=== PATIENT | male | born 1995 | race Two or more races ===

== ENCOUNTER 2017-07-05 23:58 | Emergency (ER) | payer OTHER ==
[~2017-07-05] VITALS: Ht 180.3 cm; Wt 65.8 kg
[2017-07-06] MEDS ORDERED: DUI500 PO (02:29)
== END 2017-07-06 | disposition home or self-care (01) ==
LOC: ER 23:58
DX: S61.225A Laceration with foreign body of left ring finger without damage to nail, initial encounter (principal); W45.8XXA Other foreign body or object entering through skin, initial encounter; Y93.89 Activity, other specified; Y92.098 Other place in other non-institutional residence as the place of occurrence of the external cause; Y99.8 Other external cause status